=== PATIENT | female | born 1935 | race Caucasian/White ===

== ENCOUNTER 2019-08-10 20:56 | Observation (INO) ==
[2019-08-11] MEDS ORDERED: Naloxone 0.4 MG/ML INJ IVP PRN (00:13)
[2019-08-11] MEDS ORDERED: Ondansetron 4 MG/2 ML VIAL IVP PRN (00:13)
[2019-08-11] MEDS ORDERED: Gadolinium Contrast Agent (WT Based) IV PRN (00:16)
[2019-08-11] MEDS: 0.9 % Sodium Chloride 1,000 ML IVC SCH ×2 (02:37→10:40)
[2019-08-11 05:07] LABS: Red Cell Distribution Width 13.8 % (11.5-14.5)
[2019-08-11 05:08] LABS: INR 1.2; Prothrombin Time 14.1 Seconds (9.4-12.1)
[2019-08-11 05:09] LABS: Basophils % 0.3 %
[2019-08-11 05:12] LABS: Eosinophils % 0.1 %; Hematocrit 31.8 % (35.3-44.9); Hemoglobin 10.3 g/dL (11.5-15.4); Immature Granulocytes % 0.4 % (0-4); Immature Platelets 10.5 % (1.1-6.1); Lymphocytes # 0.5 K/mcL (0.6-4.6); Lymphocytes % 7.5 %; Mean Corpuscular HGB Conc 32.4 g/dL (31.6-35.5); Mean Corpuscular Hemoglobin 30.3 pg (28.0-33.3); Mean Corpuscular Volume 93.5 fL (83.0-100.0); Monocytes # 0.3 K/mcL (0.0-1.3); Monocytes % 4.3 %; Segmented Neutrophils % 87.4 %; White Blood Count 6.9 K/mcL (4.3-11.1)
[2019-08-11 05:13] LABS: Platelet Count 90 K/mcL (140-400)
[2019-08-11 05:23] LABS: Calcium 9.3 mg/dL (8.6-10.3); Chol/HDL Ratio 2.1 (0-4.9); Magnesium 1.9 mg/dL (1.6-2.6); Phosphorous 4.4 mg/dL (2.7-4.5); Potassium 4.1 mEq/L (3.5-5.1)
[2019-08-11 05:30] LABS: Large Platelets Present (Not Present); Platelet Estimate Decreased (Normal)
[2019-08-11] MEDS ORDERED: Cefepime HCl 1,000 MG in 0.9 % Sodium Chloride Mini Bag 100 ML IVPB SCH (08:05)
[2019-08-11] MEDS ORDERED: Haloperidol Oral Conc 10 MG/5 ML UDC PO PRN (12:08)
[2019-08-11] MEDS ORDERED: Acetaminophen 650 MG RECTAL SUPP RC PRN (12:10)
[2019-08-11] MEDS ORDERED: Atropine Sulfate 1% 40 DROP/2 ML BOTTLE SL PRN (12:19)
[2019-08-11] MEDS: Morphine Sulfate Oral CONC 10 MG/0.5 ML ORAL.SYG SL PRN ×2 (13:08→21:34)
[2019-08-12] MEDS: Morphine Sulfate Oral CONC 10 MG/0.5 ML ORAL.SYG SL PRN (03:23)
[2019-08-13 01:23] VITALS: BP 170/67
[2019-08-13] MEDS: Morphine Sulfate Oral CONC 10 MG/0.5 ML ORAL.SYG SL PRN (05:00)
== END 2019-08-13 07:05 | disposition expired ==
LOC: 2ANU
PROVIDERS: ADMIT Student in an Organized Health Care Education/Training Program; ATTEND Student in an Organized Health Care Education/Training Program